=== PATIENT | female | born 1995 | race Caucasian/White ===

== ENCOUNTER 2022-02-19 10:17 | Outpatient (CLI) | payer OTHER, SELFPAY ==
[2022-02-19 14:25] LABS: Chloride* 105 mmol/L (96-114); Potassium* 4.2 mmol/L (3.6-5.1); Sodium* 138 mmol/L (135-149)
[2022-02-19 14:28] LABS: Blood Urea Nitrogen* 12 mg/dL (5-24); Carbon Dioxide* 26 mmol/L (20-32); Creatinine* 0.7 mg/dL (0.5-1.5); Estimated Glomerular Filt Rate 123 ml/min; Glucose* 89 mg/dL (60-115)
[2022-02-19 14:29] LABS: Calcium* 9.4 mg/dL (8.4-10.6)
[2022-02-19 15:23] LABS: HDL Cholesterol* 50 mg/dL (>=50); LDL Cholesterol Calculated 124 mg/dL (<100)
[2022-02-19 15:43] LABS: Cholesterol* 194 mg/dL (90-199); Triglycerides* 102 mg/dL (40-149)
== END 2022-02-19 10:18 | disposition home or self-care (01) ==
PROVIDERS: PCP Family Medicine; Visit Provider Family Medicine
DX: E78.5 Hyperlipidemia, unspecified (principal); E03.9 Hypothyroidism, unspecified; Z79.899 Other long term (current) drug therapy; L70.9 Acne, unspecified; F51.04 Psychophysiologic insomnia
CPT/HCPCS: 80048; 80061; 84443

== ENCOUNTER 2022-07-05 08:48 | Outpatient (CLI) | payer OTHER, SELFPAY ==
[2022-07-05 10:42] LABS: Chloride* 106 mmol/L (96-114)
[2022-07-05 10:43] LABS: Albumin* 4.7 g/dL (3.3-5.0); Potassium* 4.5 mmol/L (3.6-5.1); Sodium* 139 mmol/L (135-149)
[2022-07-05 10:45] LABS: Bilirubin Total* 0.6 mg/dL (0.1-1.5); Carbon Dioxide* 26 mmol/L (20-32); Creatinine* 0.6 mg/dL (0.5-1.5); Estimated Glomerular Filt Rate 128 ml/min; Total Protein* 7.2 g/dL (6.0-8.3)
[2022-07-05 10:46] LABS: Alanine Aminotransferase* 17 U/L (4-35); Alkaline Phosphatase* 48 U/L (40-150); Aspartate Amino Transferase* 21 U/L (12-35); Blood Urea Nitrogen* 13 mg/dL (5-24); Calcium* 8.9 mg/dL (8.4-10.6); Glucose* 85 mg/dL (60-115)
[2022-07-05 12:05] LABS: Chlamydia DNA Amplified* NOT DETECTED (No Detected); GC DNA Amplified* NOT DETECTED (No Detected)
== END 2022-07-05 08:49 | disposition home or self-care (01) ==
PROVIDERS: PCP Family Medicine; Visit Provider Obstetrics & Gynecology
DX: Z01.419 Encounter for gynecological examination (general) (routine) without abnormal findings (principal); Z79.899 Other long term (current) drug therapy; Z11.3 Encounter for screening for infections with a predominantly sexual mode of transmission
CPT/HCPCS: 80053; 87491; 87591

== ENCOUNTER 2023-08-17 09:17 | Outpatient (CLI) | payer OTHER, SELFPAY | END 2023-08-17 09:18 | disposition home or self-care (01) | PROVIDERS: PCP Family Medicine; Visit Provider Obstetrics & Gynecology | DX: E78.2 Mixed hyperlipidemia (principal) | CPT/HCPCS: 80061; 84443 ==

== ENCOUNTER 2024-12-25 09:28 | Outpatient (CLI) | payer OTHER, SELFPAY | END 2024-12-25 09:29 | disposition home or self-care (01) | LOC: NFLDREF 09:29 | PROVIDERS: PCP Family Medicine; Visit Provider Obstetrics & Gynecology | DX: E03.9 Hypothyroidism, unspecified (principal) | CPT/HCPCS: 84439; 84443 ==